=== PATIENT | female | born 2000 | race Caucasian/White ===

== ENCOUNTER 2019-04-30 10:04 | Emergency (ER) | payer MEDICAID ==
--- NOTE | 2019-04-30 10:56 | EDM.PDOC ---
ED HPI GENERAL MEDICAL PROBLEM - General Chief Complaint: DISPLAY DECORATOR Problem Stated Complaint: MENSTRUAL ISSUES Time Seen by Provider: 04/30/19 10:50 - History of Present Illness INITIAL COMMENTS - FREE TEXT/NARRATIVE: 19-year-old female presents the emergency room with menstrual irregularities. Patient is not in any distress at this time she does not really have any pain. However she is had 2 periods this month. She has never had this happen in the past. The patient has a history of type 2 diabetes, no history of thyroid problems, she could be . She has a history of bipolar illness anxiety and schizophrenia. Bilateral Lower Abdomen Pain Score (Numeric/FACES): 4 - Related Data Allergies Allergy/AdvReac Type Severity Reaction Status Date / Time No Known Allergies Allergy Verified 04/30/19 10:37 Home Meds: Home Meds . [No Known Home Meds] 04/30/19 [History] Past Medical History HEENT History: Reports: Impaired Vision Other HEENT History: glasses Gastrointestinal History: Reports: GERD DISPLAY DECORATOR History: Reports: Polycystic Ovaries Psychiatric History: Reports: Anxiety, Bipolar, Depression, PTSD, Schizophrenia Endocrine/Metabolic History: Reports: Diabetes, Type II - Past Surgical History HEENT Surgical History: Reports: Tonsillectomy Social & Family History - Tobacco Use Smoking Status *Q: Current Every Day Smoker Years of Tobacco use: 6 Packs/Tins Daily: 0.5 - Caffeine Use Caffeine Use: Reports: Soda - Recreational Drug Use Recreational Drug Use: Yes Recreational Drug Type: Reports: Marijuana/Hashish ED ROS GENERAL - Review of Systems Review Of Systems: See Below Constitutional: Reports: No Symptoms HEENT: Reports: No Symptoms Respiratory: Reports: No Symptoms Cardiovascular: Reports: No Symptoms Endocrine: Reports: No Symptoms GI/Abdominal: Reports: No Symptoms ED EXAM, RENAL/ - Physical Exam Exam: See Below Exam Limited By: No Limitations General Appearance: Alert, No Apparent Distress Head: Atraumatic, Normocephalic Neck: Normal Inspection, Supple, Non-Tender, Full Range of Motion Respiratory/Chest: No Respiratory Distress, Lungs Clear, Normal Breath Sounds Cardiovascular: Regular Rate, Rhythm, No Edema, No Murmur GI/Abdominal: Normal Bowel Sounds, Soft, Non-Tender Neurological: Alert, Oriented, Normal Cognition Psychiatric: Normal Affect, Normal Mood Course - Vital Signs Last Recorded V/S: Last Vital Signs Temp 37.0 C 12/30/19 10:37 Pulse 84 04/30/19 10:37 Resp 16 04/30/19 10:37 BP 126/70 04/30/19 10:37 Pulse Ox 100 04/30/19 10:37 - Orders/Labs/Meds Orders: Active Orders 24 hr Category Date Time Status TSH [CHEM] Stat Lab 04/30/19 11:20 Received Labs: Laboratory Tests 04/30/19 Range/Units 11:20 HCG, Qual Negative (NEGATIVE) - Re-Assessments/Exams Free Text/Narrative Re-Assessment/Exam: 04/30/19 11:01 I discussed with the patient that this type of complaint is better taken up with her primary provider or with gynecology we are really not experts in this field and have limited continuity. She seems to understand. Today I will check a TSH and hCG. 04/30/19 12:19 The patient is insistent on going home at this point because she has a ride. Her TSH is still pending hCG is negative she will follow-up with her regular provider Departure - Departure Time of Disposition: 12:19 Disposition: Home, Self-Care 01 Clinical Impression: Menstrual periods irregular - Discharge Information Referrals: PCP,Not In Area [Primary Care Provider] - Forms: ED Department Discharge, ED Return to Work/School Form Additional Instructions: Return to the emergency room with any questions problems or worsening symptoms. Follow-up with your regular provider to discuss regulating your periods. A thyroid test was drawn but the results of this are still pending at this point Sepsis Event Note - Evaluation Sepsis Screening Result: No Definite Risk - Focused Exam Vital Signs: Vital Signs Temp Pulse Resp BP Pulse Ox 04/30/19 10:37 37.0 C 84 16 126/70 100 Date Exam was Performed: 04/30/19 Time Exam was Performed: 12:18 - My Orders Last 24 Hours: My Active Orders 04/30/19 11:20 TSH [CHEM] Stat - Assessment/Plan Last 24 Hours: My Active Orders 04/30/19 11:20 TSH [CHEM] Stat
== END 2019-04-30 12:36 | disposition home or self-care (01) ==
LOC: JD.ED 10:04
DX: N92.6 Irregular menstruation, unspecified (principal); E11.9 Type 2 diabetes mellitus without complications; F17.210 Nicotine dependence, cigarettes, uncomplicated
CPT/HCPCS: 36415; 84443; 84703; 99281; 99284

== ENCOUNTER 2022-11-30 00:13 | Inpatient (IN) | payer MEDICAID ==
[2022-11-30] MEDS ORDERED: Ondansetron 4 MG/2 ML SDV IVPUSH PRN (07:14)
[2022-11-30] MEDS ORDERED: Nalbuphine 10 MG/0.5 ML Syringe IVPUSH PRN (07:14)
[2022-11-30] MEDS ORDERED: Sodium Chloride 0.9% 10 ML Syringe FLUSH PRN (07:14)
[2022-11-30] MEDS ORDERED: Acetaminophen 325 MG Tab PO PRN (07:14)
[2022-11-30] MEDS ORDERED: Oxytocin/Lactated Ringers 10 UNIT/1,000 ML BAG IV SCH ×2 (07:15→07:30)
[2022-11-30] MEDS ORDERED: 50% Dextrose in Water 50 ML Syringe IVPUSH PRN (07:22)
[2022-11-30 07:52] LABS: HEMATOCRIT 36.9 % (34.1-44.9); HEMOGLOBIN 12.4 gm/dl (11.2-15.7); MEAN CORPUSCULAR HEMOGLOBIN 32.1 pg (25.6-32.2); MEAN CORPUSCULAR HGB CONC 33.6 g/dl (32.2-35.5); MEAN CORPUSCULAR VOLUME 95.6 fl (79.4-94.8); MEAN PLATELET VOLUME 13.5 fl (9.4-12.3); PLATELET COUNT,PLT 129 K/mm3 (182-369); RED BLOOD CELL COUNT 3.86 M/mm3 (3.98-5.22)
[2022-11-30] MEDS: Misoprostol 25 MCG (1/4 of 100 MCG) Tab VAG PRN ×3 (08:00→16:05)
[2022-11-30 08:25] LABS: ALANINE AMINOTRANSFERASE,ALT 15 U/L (14-59); ASPARTATE AMNIOTRANSFERASE,AST 15 U/L (15-37); CREATININE 0.4 mg/dL (0.55-1.02); ESTIMATED GFR 142 mL/min (>60)
[2022-11-30] MEDS: Sertraline 50 MG Tab PO SCH (08:47)
[2022-11-30] MEDS ORDERED: Sodium Chloride 0.9% 10 ML Syringe FLUSH SCH (09:00)
[2022-11-30] MEDS ORDERED: Insulin Glargine,Human Rec. Analog 100 Units/ML 3 ML Pen SUBCUT SCH (12:00)
[2022-11-30] MEDS ORDERED: diphenhydrAMINE 50 MG/ML SDV IVPUSH PRN (21:38)
[2022-11-30] MEDS ORDERED: fentaNYL 100 MCG/2 ML SDV EPIDUR PRN (21:38)
[2022-11-30] MEDS ORDERED: Bupivacaine/fentaNYL/NS 100 ML Bag EPIDUR PRN (21:38)
[2022-11-30] MEDS ORDERED: ePHEDrine 50 MG/ML SDV IVPUSH PRN (21:38)
[2022-11-30] MEDS: Lactated Ringers 1,000 ML IV SCH ×2 (22:30→23:25)
[2022-11-30] MEDS ORDERED: ceFAZolin 2 GM in Sodium Chloride 0.9% 50 ML IV ONE (23:04)
[2022-11-30] MEDS ORDERED: Metoclopramide 10 MG/2 ML SDV IVPUSH ONE (23:04)
[2022-11-30] MEDS ORDERED: Citric Acid/Sodium Citrate Solution 30 ML Cup PO ONE (23:04)
[2022-11-30] MEDS ORDERED: Azithromycin 500 MG in Sodium Chloride 0.9% 250 ML IV ONE (23:06)
[2022-11-30] MEDS ORDERED: fentaNYL 100 MCG/2 ML SDV ONE (23:24)
[2022-11-30] MEDS ORDERED: Morphine PF 10 MG/10 ML SDV ONE (23:25)
[2022-11-30] MEDS ORDERED: ceFAZolin 2 GM Vial ONE (23:26)
[2022-12-01] MEDS ORDERED: Oxytocin 10 Units/1 ML SDV ONE ×2 (00:04→00:35)
[2022-12-01] MEDS ORDERED: Lactated Ringers 1,000 ML ONE ×2 (00:06→00:36)
[2022-12-01] MEDS ORDERED: Ondansetron 4 MG/2 ML SDV ONE (00:21)
[2022-12-01] MEDS ORDERED: Ketorolac 30 MG/ML SDV ONE (00:48)
[2022-12-01] MEDS ORDERED: Naloxone 0.4 MG/ML SDV IVPUSH PRN (02:17)
[2022-12-01] MEDS ORDERED: Acetaminophen/oxyCODONE 325-5 MG Tab PO PRN (02:17)
[2022-12-01] MEDS ORDERED: ePHEDrine 50 MG/ML SDV IVPUSH PRN (02:17)
[2022-12-01] MEDS ORDERED: Acetaminophen 325 MG Tab PO PRN (02:17)
[2022-12-01] MEDS ORDERED: diphenhydrAMINE 50 MG/ML SDV IVPUSH PRN (02:17)
[2022-12-01] MEDS ORDERED: Ondansetron 4 MG/2 ML SDV IV PRN (02:17)
[2022-12-01] MEDS ORDERED: Dextrose 5%-Lactated Ringers 1,000 ML IV SCH (02:17)
[2022-12-01] MEDS ORDERED: Docusate Sodium 100 MG Cap PO PRN (02:17)
[2022-12-01] MEDS: Ketorolac 30 MG/ML SDV IVPUSH SCH ×3 (07:42→20:46)
[2022-12-01] MEDS: Insulin Glargine,Human Rec. Analog 100 Units/ML 3 ML Pen SUBCUT SCH (11:54)
[2022-12-01] MEDS: Sertraline 50 MG Tab PO SCH (11:54)
[2022-12-02 06:36] LABS: HEMATOCRIT 34.5 % (34.1-44.9); HEMOGLOBIN 11.2 gm/dl (11.2-15.7); MEAN CORPUSCULAR HEMOGLOBIN 31.6 pg (25.6-32.2); MEAN CORPUSCULAR HGB CONC 32.5 g/dl (32.2-35.5); MEAN CORPUSCULAR VOLUME 97.5 fl (79.4-94.8); MEAN PLATELET VOLUME 13.1 fl (9.4-12.3); PLATELET COUNT,PLT 120 K/mm3 (182-369); RED BLOOD CELL COUNT 3.54 M/mm3 (3.98-5.22); WHITE BLOOD CELL COUNT,WBC 9.58 K/mm3 (3.98-10.04)
[2022-12-02] MEDS: Insulin Glargine,Human Rec. Analog 100 Units/ML 3 ML Pen SUBCUT SCH (12:05)
[2022-12-02] MEDS: Ibuprofen 600 MG Tab PO PRN (12:06)
[2022-12-02] MEDS: Sertraline 50 MG Tab PO SCH (12:09)
[2022-12-02] MEDS: Acetaminophen/oxyCODONE 325-5 MG Tab PO PRN (21:14)
[2022-12-03] MEDS: Acetaminophen/oxyCODONE 325-5 MG Tab PO PRN ×3 (05:48→20:18)
[2022-12-03] MEDS: Insulin Glargine,Human Rec. Analog 100 Units/ML 3 ML Pen SUBCUT SCH (12:36)
[2022-12-03] MEDS: Sertraline 50 MG Tab PO SCH (12:46)
[2022-12-03] MEDS: Ibuprofen 600 MG Tab PO PRN (20:19)
[2022-12-04] MEDS: Acetaminophen/oxyCODONE 325-5 MG Tab PO PRN (05:06)
[2022-12-04] MEDS: Ibuprofen 600 MG Tab PO PRN (05:08)
[2022-12-04] MEDS: Sertraline 50 MG Tab PO SCH (09:49)
== END 2022-12-04 13:55 | disposition home or self-care (01) | DRG 786 ==
LOC: JD.OB 00:13 → OBSVTOIN 12-01 00:13 → JD.OB 12-01 04:36
PROVIDERS: ADMIT Obstetrics & Gynecology; ATTEND Obstetrics & Gynecology
PROC: 10D00Z1 Extraction of Products of Conception, Low, Open Approach (ICD-10-PCS; principal; 2022-12-01)
PROC: 10907ZC Drainage of Amniotic Fluid, Therapeutic from Products of Conception, Via Natural or Artificial Opening (ICD-10-PCS; 2022-12-01)
PROC: 3E033VJ Introduction of Other Hormone into Peripheral Vein, Percutaneous Approach (ICD-10-PCS; 2022-12-01)
DX: O76 Abnormality in fetal heart rate and rhythm complicating labor and delivery (principal); O24.12 Pre-existing type 2 diabetes mellitus, in childbirth; O14.04 Mild to moderate pre-eclampsia, complicating childbirth; O99.344 Other mental disorders complicating childbirth; F39 Unspecified mood [affective] disorder; E11.65 Type 2 diabetes mellitus with hyperglycemia; F41.9 Anxiety disorder, unspecified; F20.9 Schizophrenia, unspecified; F43.10 Post-traumatic stress disorder, unspecified; O99.334 Smoking (tobacco) complicating childbirth; F17.210 Nicotine dependence, cigarettes, uncomplicated; O99.214 Obesity complicating childbirth; Z90.49 Acquired absence of other specified parts of digestive tract; Z37.0 Single live birth; Z88.0 Allergy status to penicillin; Z3A.37 37 weeks gestation of pregnancy; Z79.4 Long term (current) use of insulin; Z79.899 Other long term (current) drug therapy
CPT/HCPCS: 01961; 36415; 59025; 82565; 82947; 84450; 84460; 85027; 86592; 86850; 86900; 86901; 94762; 99140; A9270-GY; C1726; J0456; J0690; J1815-GY; J1885; J2274; J2300; J2405; J2590; J2765; J3010; J7050; J7120; J7121

== ENCOUNTER 2024-10-26 05:42 | Inpatient (IN) | payer MEDICAID ==
[~2024-10-26 05:42] MED LIST: Lactated Ringers 1,000 ML IV SCH; Sodium Chloride 0.9% 10 ML Syringe FLUSH PRN; Sodium Chloride 0.9% 10 ML Syringe FLUSH SCH
[2024-10-26] MEDS ORDERED: ceFAZolin 2 GM in Sodium Chloride 0.9% 50 ML IV ONE ×2 (06:03→07:00)
[2024-10-26] MEDS ORDERED: Metoclopramide 10 MG/2 ML SDV IVPUSH ONE (06:03)
[2024-10-26] MEDS ORDERED: Citric Acid/Sodium Citrate Solution 30 ML Cup PO ONE (06:03)
[2024-10-26 06:14] LABS: BASOPHILS PERCENT AUTO 0.3 % (0.0-1.0); EOSINOPHILS ABSOLUTE AUTO 0.1 K/mm3 (0.0-0.4); EOSINOPHILS PERCENT AUTO 0.8 % (0.0-6.0); HEMATOCRIT 38.4 % (37.0-47.0); HEMOGLOBIN 13.3 gm/dl (12.0-16.0); IMMATURE GRAN ABSOLUTE AUTO 0.05 K/mm3 (0.00-0.05); IMMATURE GRAN PERCENT AUTO 0.4 % (0.0-0.4); LYMPHOCYTES ABSOLUTE AUTO 2.7 K/mm3 (1.0-4.8); LYMPHOCYTES PERCENT AUTO 22.6 % (24.0-44.0); MEAN CORPUSCULAR HEMOGLOBIN 31.8 pg (28.0-32.0); MEAN CORPUSCULAR HGB CONC 34.6 g/dl (32.0-36.0); MEAN CORPUSCULAR VOLUME 91.9 fl (83.0-99.0); MEAN PLATELET VOLUME 12.6 fl (9.4-12.3); MONOCYTES ABSOLUTE AUTO 0.8 K/mm3 (0.0-0.8); MONOCYTES PERCENT AUTO 6.9 % (0.0-8.0); NEUTROPHILS ABSOLUTE AUTO 8.3 K/mm3 (1.8-7.7); PLATELET COUNT,PLT 156 K/mm3 (150-400); RED BLOOD CELL COUNT 4.18 M/mm3 (4.10-5.30); WHITE BLOOD CELL COUNT,WBC 11.98 K/mm3 (3.9-11.3)
[2024-10-26] MEDS ORDERED: Lactated Ringers 1,000 ML IV SCH (06:15)
[2024-10-26] MEDS ORDERED: Oxytocin/0.9 % Sodium Chloride 30 UNIT/500 ML BAG IV SCH ×2 (06:15→06:30)
[2024-10-26] MEDS ORDERED: Ondansetron 4 MG/2 ML SDV IVPUSH PRN (06:44)
[2024-10-26] MEDS ORDERED: fentaNYL 100 MCG/2 ML SDV IVPUSH PRN (06:44)
[2024-10-26] MEDS ORDERED: diphenhydrAMINE 50 MG/ML SDV IVPUSH PRN ×2 (06:44→10:23)
[2024-10-26] MEDS ORDERED: Meperidine 50 MG/ML Vial IVPUSH PRN (06:44)
[2024-10-26] MEDS ORDERED: ePHEDrine 50 MG/ML SDV ONE (06:45)
[2024-10-26] MEDS ORDERED: Morphine PF 10 MG/10 ML SDV ONE (06:45)
[2024-10-26] MEDS: Citric Acid/Sodium Citrate Solution 30 ML Cup PO ONE (07:18)
[2024-10-26] MEDS: Metoclopramide 10 MG/2 ML SDV IVPUSH ONE (07:18)
[2024-10-26] MEDS ORDERED: Lactated Ringers 1,000 ML IV ONE (07:30)
[2024-10-26] MEDS ORDERED: ceFAZolin 2 GM Vial ONE (07:40)
[2024-10-26] MEDS ORDERED: Ondansetron 4 MG/2 ML SDV ONE (07:45)
[2024-10-26] MEDS ORDERED: Oxytocin/0.9 % Sodium Chloride 30 UNIT/500 ML BAG IV ONE (08:00)
[2024-10-26] MEDS: Lactated Ringers 1,000 ML IV SCH ×2 (09:05→11:21)
[2024-10-26] MEDS ORDERED: Glucagon,Human Recombinant 1 MG Vial IM PRN (10:23)
[2024-10-26] MEDS ORDERED: Naloxone 0.4 MG/ML SDV IVPUSH PRN (10:23)
[2024-10-26] MEDS ORDERED: Dextrose 5%-Lactated Ringers 1,000 ML IV SCH (10:23)
[2024-10-26] MEDS ORDERED: Ondansetron 4 MG/2 ML SDV IV PRN (10:23)
[2024-10-26] MEDS ORDERED: ePHEDrine 50 MG/ML SDV IVPUSH PRN (10:23)
[2024-10-26] MEDS ORDERED: Sodium Chloride 0.9% 10 ML Syringe FLUSH PRN (10:23)
[2024-10-26] MEDS ORDERED: Acetaminophen 325 MG Tab PO PRN (10:23)
[2024-10-26] MEDS: Ketorolac 30 MG/ML SDV IVPUSH SCH (10:53)
[2024-10-26] MEDS: Insulin Lispro 100 Unit/ML 3 ML KwikPen SUBCUT SCH (17:16)
[2024-10-26] MEDS: oxyCODONE 5 MG Tab PO PRN (18:17)
[2024-10-26] MEDS: Insulin Glargine,Human Rec. Analog 100 Units/ML 3 ML Pen SUBCUT SCH (22:38)
[2024-10-27] MEDS: Docusate Sodium 100 MG Cap PO PRN (03:59)
[2024-10-27] MEDS: Ibuprofen 600 MG Tab PO SCH (05:40)
[2024-10-27] MEDS: Simethicone 80 MG Tab.Chew PO PRN (05:41)
[2024-10-27 05:51] LABS: HEMOGLOBIN 10.7 gm/dl (12.0-16.0); MEAN CORPUSCULAR HEMOGLOBIN 31.5 pg (28.0-32.0); MEAN CORPUSCULAR HGB CONC 33.4 g/dl (32.0-36.0); MEAN CORPUSCULAR VOLUME 94.1 fl (83.0-99.0); MEAN PLATELET VOLUME 12.4 fl (9.4-12.3); PLATELET COUNT,PLT 129 K/mm3 (150-400); WHITE BLOOD CELL COUNT,WBC 10.45 K/mm3 (3.9-11.3)
== END 2024-10-28 10:30 | disposition home or self-care (01) | DRG 788 ==
LOC: JD.OB 05:42
PROVIDERS: ADMIT Obstetrics & Gynecology; ATTEND Obstetrics & Gynecology
PROC: 10D00Z1 Extraction of Products of Conception, Low, Open Approach (ICD-10-PCS; principal; 2024-10-26 07:30)
DX: O24.12 Pre-existing type 2 diabetes mellitus, in childbirth (principal); O34.211 Maternal care for low transverse scar from previous cesarean delivery; O99.214 Obesity complicating childbirth; Z3A.37 37 weeks gestation of pregnancy; Z37.0 Single live birth; Z88.0 Allergy status to penicillin; Z72.0 Tobacco use; Z90.49 Acquired absence of other specified parts of digestive tract; Z79.4 Long term (current) use of insulin; Z79.899 Other long term (current) drug therapy
CPT/HCPCS: 01961; 36415; 59025; 82947; 85025; 85027; 86592; 86850; 86900; 86901; A9270-GY; J0690; J1885; J2274; J2405; J2765; J3490; J7120; J7999